=== PATIENT | male | born 1955 | race African-American/Black ===

== ENCOUNTER 2016-11-07 10:08 | Emergency (ER) | payer MEDICARE, OTHER ==
[~2016-11-07] VITALS: Ht 180.3 cm; Wt 72.6 kg
[2016-11-07 10:37] VITALS: BP 108/75
== END 2016-11-07 11:26 | disposition home or self-care (01) ==
LOC: ER 10:11
DX: S50.01XA Contusion of right elbow, initial encounter (principal); F17.210 Nicotine dependence, cigarettes, uncomplicated; M19.021 Primary osteoarthritis, right elbow; M17.0 Bilateral primary osteoarthritis of knee; M77.9 Enthesopathy, unspecified; W22.8XXA Striking against or struck by other objects, initial encounter; Y93.89 Activity, other specified; Y99.8 Other external cause status; Y92.89 Other specified places as the place of occurrence of the external cause
CPT/HCPCS: 73080

== ENCOUNTER 2017-12-16 23:58 | Emergency (ER) | payer MEDICARE, OTHER ==
[~2017-12-16] VITALS: Ht 180.3 cm; Wt 77.1 kg
[2017-12-17 00:10] VITALS: BP 140/99
[2017-12-17 01:06] LABS: Basophils # (auto) 0.1 uL; Basophils % (auto) 0.7 % (0.0-2.0); Eosinophils # (auto) 0 uL; Eosinophils % (auto) 0.2 % (0.0-7.0); Hematocrit 44.1 % (41.0-53.0); Hemoglobin 14.7 g/dL (13.5-17.5); Lymphocytes # (auto) 1.3 uL; Lymphocytes % (auto) 9.9 % (10.0-50.0); Mean Corpuscular Hemoglobin 27.4 pg (28.0-32.0); Mean Corpuscular Hgb Conc. 33.3 g/dL (32.0-36.0); Mean Corpuscular Volume 82.2 fL (80.0-100.0); Monocytes # (auto) 1.6 uL; Monocytes % (auto) 11.8 % (0.0-12.0); Neutrophils # (auto) 10.4 uL; Neutrophils % (auto) 77.4 % (37.0-80.0); Nucleated Red Blood Cells % 0.2 %; Platelet Count (auto) 303 10^3/uL (140-450); Red Blood Cells 5.37 10^6/uL (4.5-5.90); Red Cell Distribution Width 14.4 % (11.8-14.3); White Blood Cell 13.4 10^3/uL (4.4-10.8)
[2017-12-17 02:07] LABS: Albumin 4.5 g/dL (3.4-5.0); BUN/Creatinine Ratio 9.6; Bilirubin, Total 0.8 mg/dL (0.2-1.0); Calcium 9.3 mg/dL (8.5-10.1); Total Protein 8.8 g/dL (6.4-8.2); Uric Acid 6.3 mg/dL (3.5-7.2)
[2017-12-17] MEDS ORDERED: KETOROLAC TROMETH 30 MG/ML 1ML VIAL IM ONE (03:00)
[2017-12-17] MEDS ORDERED: HYDROcodone-ACET 10/325MG TAB PO ONE (03:00)
[2017-12-17] MEDS ORDERED: methylPREDNISolone SOD SUCC 125 MG/2 ML VL IM ONE (03:00)
== END 2017-12-17 03:14 | disposition home or self-care (01) ==
LOC: ER 23:58
DX: M10.9 Gout, unspecified (principal); F17.210 Nicotine dependence, cigarettes, uncomplicated
CPT/HCPCS: 36415; 73110; 73130; 80053; 84550; 85025; 96372; 99285; J1885; J2930

== ENCOUNTER 2019-08-20 13:39 | Inpatient (IN) | payer OTHER, MEDICAID ==
[~2019-08-20] VITALS: Ht 180.3 cm; Wt 63.9 kg
[2019-08-20] MEDS ORDERED: LIDOCAINE 1% HCL (LOCAL ANESTH.) INJ 20ML MDV ONE (16:55)
[2019-08-20 20:04] LABS: Basophils # (auto) 0.1 uL; Basophils % (auto) 0.9 % (0.0-2.0); Eosinophils # (auto) 0.1 uL; Eosinophils % (auto) 0.5 % (0.0-7.0); Hematocrit 30.8 % (41.0-53.0); Hemoglobin 10.4 g/dL (13.5-17.5); Lymphocytes # (auto) 2.6 uL; Mean Corpuscular Hemoglobin 28.1 pg (28.0-32.0); Mean Corpuscular Hgb Conc. 33.7 g/dL (32.0-36.0); Mean Corpuscular Volume 83.2 fL (80.0-100.0); Monocytes # (auto) 1.2 uL; Monocytes % (auto) 10.3 % (0.0-12.0); Neutrophils # (auto) 7.5 uL; Neutrophils % (auto) 65.3 % (37.0-80.0); Platelet Count (auto) 529 10^3/uL (140-450); Red Blood Cells 3.71 10^6/uL (4.5-5.90); White Blood Cell 11.4 10^3/uL (4.4-10.8)
[2019-08-20 20:25] LABS: Albumin 2.8 g/dL (3.4-5.0); Calcium 8.3 mg/dL (8.5-10.1); Potassium 3.9 mmol/L (3.5-5.1)
[2019-08-20 20:27] LABS: BUN/Creatinine Ratio 9.4; Bilirubin, Total 0.3 mg/dL (0.2-1.0); Total Protein 7.2 g/dL (6.4-8.2)
[2019-08-20 20:37] LABS: INR 1.07 (0.9-1.15); Partial Thromboplastin Time 25.2 sec (23.64-32.05)
[2019-08-20] MEDS ORDERED: ACETAMINOPHEN 325 MG TAB PO PRN (23:00)
[2019-08-20] MEDS ORDERED: MORPHINE SULFATE 4 MG/ML SYR/VIAL IV PRN (23:00)
--- NOTE | 2019-08-21 00:20 | NUR ---
MS admit from ER LONNIE DOCKERY admitted to [facility] after SBAR received. Patient oriented to Leigh Wilkins, primary RN, unit, room, bed, and unit policies regarding patient care and visiting hours. Patient weighed by bedscale and encouraged to call if they need something. All questions and concerns addressed, patient verbalized understanding. Note: pt is awake and alert, noted small incision on left posterior shoulder with stitches intact,no wound drainage noted, no signs of distress at this time, will continue to monitor.
[2019-08-21] MEDS: ONDANSETRON HCL 4 MG/2 ML VIAL IV PRN ×3 (00:52→12:22)
[2019-08-21] MEDS ORDERED: HYDR-531 PO (00:56)
[2019-08-21] MEDS ORDERED: INFLUENZA QUAD 2019-2020 0.5ml SYRG IM ONE (01:00)
[2019-08-21] MEDS ORDERED: PNEUMOCOCCAL VACC POLYS 25 MCG/0.5 ML VIAL IM ONE (01:00)
[2019-08-21 05:00] VITALS: BP 112/70
[2019-08-21 06:07] LABS: Basophils # (auto) 0.1 uL; Eosinophils % (auto) 0.5 % (0.0-7.0); Hemoglobin 9.9 g/dL (13.5-17.5); Red Cell Distribution Width 14.9 % (11.8-14.3); White Blood Cell 10.2 10^3/uL (4.4-10.8)
[2019-08-21 06:09] LABS: Basophils % (auto) 1.1 % (0.0-2.0); Eosinophils # (auto) 0.1 uL; Lymphocytes # (auto) 2.7 uL; Lymphocytes % (auto) 26.7 % (10.0-50.0); Mean Corpuscular Hemoglobin 28.7 pg (28.0-32.0); Mean Corpuscular Hgb Conc. 34.3 g/dL (32.0-36.0); Mean Corpuscular Volume 83.5 fL (80.0-100.0); Monocytes # (auto) 1.1 uL; Monocytes % (auto) 11.3 % (0.0-12.0); Neutrophils # (auto) 6.1 uL; Neutrophils % (auto) 60.4 % (37.0-80.0); Nucleated Red Blood Cells % 0.1 %; Platelet Count (auto) 548 10^3/uL (140-450); Red Blood Cells 3.47 10^6/uL (4.5-5.90)
[2019-08-21 06:29] LABS: Calcium 8.2 mg/dL (8.5-10.1); Potassium 3.8 mmol/L (3.5-5.1)
[2019-08-21 06:32] LABS: BUN/Creatinine Ratio 9.5
--- NOTE | 2019-08-21 07:15 | NUR ---
Opening Shift Note Assumed care of patient, awake and alert. No S/S of distress/SOB or pain. IV is in the left forearm 22 gauge asymptomatic, intact, patent, and saline locked. Bed is locked and in lowest position and call light is within reach. Instructed on POC and to call for assist PRN, and patient verbalized understanding. Will continue to monitor for changes Q1hr and PRN.
[2019-08-21 08:44] VITALS: BP 108/66
[2019-08-21] MEDS ORDERED: PANTOPRAZOLE 40 MG/10 ML VIAL INJ IV SCH (10:00)
[2019-08-21] MEDS: D5W/SOD CHLO 0.9% 1,000 ML IV SCH ×2 (12:20→18:46)
[2019-08-21] MEDS: cefTRIAXone 1GM/50ML D5W 50 ML IV SCH (12:22)
[2019-08-21] MEDS: HYDROcodone-ACET 5/325MG TAB PO PRN ×2 (12:30→20:32)
[2019-08-21 12:49] VITALS: BP 132/75
--- NOTE | 2019-08-21 16:00 | NUR ---
Patient advanced to clear liquid diet; will be NPO at midnight tonight.
--- NOTE | 2019-08-21 16:00 | NUR ---
Dr. Guido, [employer], at bedside; new orders received.
[2019-08-21 17:18] VITALS: BP 115/67
--- NOTE | 2019-08-21 19:40 | NUR ---
Opening Shift Note Assumed care of patient, awake and alert. No S/S of distress/SOB or pain. Instructed on POC and to call for assist PRN. Bed in lowest locked position, call light within reach, side rails up x2, fall precautions in place. Will continue to monitor for changes Q1hr and PRN.
[2019-08-21 21:28] VITALS: BP 99/67
[2019-08-21] MEDS: PANTOPRAZOLE 40 MG TAB PO SCH (21:39)
[2019-08-22] MEDS: D5W/SOD CHLO 0.9% 1,000 ML IV SCH ×2 (00:22→15:28)
[2019-08-22 04:58] VITALS: BP 120/74
--- NOTE | 2019-08-22 05:15 | NUR ---
Rounds Instructed patient to change in gown and linen change would be done for pending EGD later today. Per patient, he would like to do it later and stated "I'm sleepy and I want to sleep right now." Will continue care.
--- NOTE | 2019-08-22 07:27 | NUR ---
Opening Shift Note Assumed care of patient, awake, alert and oriented x 4. No S/S of distress/SOB. Bed is in lowest position and locked, call liao within reach. Patient updated on POC and to call for assistance as needed, patient verbalized understanding.
[2019-08-22 09:00] VITALS: BP 100/53
[2019-08-22] MEDS: cefTRIAXone 1GM/50ML D5W 50 ML IV SCH (09:58)
[2019-08-22] MEDS: PANTOPRAZOLE 40 MG TAB PO SCH ×2 (09:58→21:30)
--- NOTE | 2019-08-22 11:35 | NUR ---
PT BROUGHT DOWN TO PRE-OP FOR PROCEDURE. NO DISTRESS NOTED AT THIS TIME
[2019-08-22] MEDS ORDERED: SODIUM CHLORIDE LOCK 10 ML ONE (11:44)
[2019-08-22] MEDS ORDERED: LIDOCAINE VISCOUS 2% 15ML UD ONE (11:44)
[2019-08-22] MEDS ORDERED: fentaNYL CITRATE 100 MCG/2 ML VL ONE (11:44)
[2019-08-22] MEDS ORDERED: FLUMAZENIL 0.1 MG/ML INJ 10ML MDV IV ONE (11:44)
[2019-08-22] MEDS ORDERED: MIDAZOLAM HCL 5 MG/ML-1ML VIAL ONE (11:44)
[2019-08-22] MEDS ORDERED: diphenhdrAMINE HCL 50 MG/1 ML VL ONE (11:45)
[2019-08-22] MEDS ORDERED: NALOXONE HCL 0.4 MG/ML VIAL ONE (11:45)
--- NOTE | 2019-08-22 12:52 | NUR ---
PT BACK UP TO UNIT FROM PROCEDURE
[2019-08-22] MEDS: HYDROcodone-ACET 5/325MG TAB PO PRN ×2 (15:49→19:57)
[2019-08-22 17:00] VITALS: BP_SYST 108; BP_SYST 94; BP_DIAS 55; BP_DIAS 61
--- NOTE | 2019-08-22 17:53 | NUR ---
IV insertion IV access obtained, via clean sterile technique by inserting 22 gauge catheter at RIGHT FOREARM after 1 attempt. IV secured properly. No trauma to site. Patient tolerated well. IV removal IV DC'd with clean sterile technique, catheter fully intact. Pressure dressing applied to site. Patient tolerated well.
--- NOTE | 2019-08-22 19:30 | NUR ---
OPENING NOTE REPORT RECEIVED FROM DAY SHIFT RN PATIENT IS A/OX4 RESTING IN BED, NO S/S OF DISTRESS AT THIS TIME. PHYSICAL ASSESSMENT DONE-SEE INTERVENTIONS. POC DISCUSSED AND ALL QUESTIONS ANSWERED. FALL PRECAUTIONS IN PLACE, CALL LIGHT WITHIN REACH. WILL MONITOR Q1H PRN THROUGHOUT SHIFT.
[2019-08-22 21:54] VITALS: BP 110/77
[2019-08-23] MEDS: D5W/SOD CHLO 0.9% 1,000 ML IV SCH ×2 (00:55→10:11)
[2019-08-23] MEDS: HYDROcodone-ACET 5/325MG TAB PO PRN ×3 (04:58→16:42)
[2019-08-23 05:02] VITALS: BP 116/80
--- NOTE | 2019-08-23 07:11 | NUR ---
CLOSING PATIENT IS RESTING COMFORTABLY IN BED. NO S/S OF DISTRESS NOTED. SBAR/CARE ENDORSED TO DAYSHIFT RN
[2019-08-23 07:34] LABS: Basophils # (auto) 0.1 uL; Basophils % (auto) 0.6 % (0.0-2.0); Eosinophils # (auto) 0.1 uL; Eosinophils % (auto) 0.5 % (0.0-7.0); Hematocrit 28.5 % (41.0-53.0); Hemoglobin 9.6 g/dL (13.5-17.5); Lymphocytes # (auto) 1.8 uL; Lymphocytes % (auto) 17.9 % (10.0-50.0); Mean Corpuscular Hemoglobin 28.6 pg (28.0-32.0); Mean Corpuscular Hgb Conc. 33.9 g/dL (32.0-36.0); Mean Corpuscular Volume 84.5 fL (80.0-100.0); Monocytes % (auto) 9.5 % (0.0-12.0); Neutrophils # (auto) 7.3 uL; Neutrophils % (auto) 71.5 % (37.0-80.0); Nucleated Red Blood Cells % 0.1 %; Platelet Count (auto) 621 10^3/uL (140-450); Red Blood Cells 3.37 10^6/uL (4.5-5.90); Red Cell Distribution Width 15.5 % (11.8-14.3); White Blood Cell 10.2 10^3/uL (4.4-10.8)
[2019-08-23 09:00] VITALS: BP 137/94
[2019-08-23] MEDS: PANTOPRAZOLE 40 MG TAB PO SCH (10:11)
[2019-08-23] MEDS: cefTRIAXone 1GM/50ML D5W 50 ML IV SCH (10:11)
[2019-08-23 11:47] VITALS: BP 137/94
--- NOTE | 2019-08-23 16:42 | NUR ---
Discharge instructions given as ordered. Encourage to follow up with PMD as instructed. All questions and concerns addressed. Patient verbalized understanding. Medication reconciliation form completed and copy given to patient. needed vaccines given. IV removed with catheter intact, pressure dressing applied,. Patient taken to vehicle via wheelchair with all personal belongings, accompanied by staff and family member. No distress noted at time of departure.
== END 2019-08-23 16:37 | disposition home or self-care (01) | DRG 379 ==
LOC: ER 13:41 → WEST WING 13:42
PROVIDERS: ADMIT Hospitalist; ATTEND Family Medicine
PROC: 0HCCXZZ Extirpation of Matter from Left Upper Arm Skin, External Approach (ICD-10-PCS; 2019-08-20)
PROC: 0DB68ZX Excision of Stomach, Via Natural or Artificial Opening Endoscopic, Diagnostic (ICD-10-PCS; principal; 2019-08-22 11:52)
DX: K29.71 Gastritis, unspecified, with bleeding (principal); F17.210 Nicotine dependence, cigarettes, uncomplicated; K44.9 Diaphragmatic hernia without obstruction or gangrene; M19.012 Primary osteoarthritis, left shoulder; K29.80 Duodenitis without bleeding; Z71.6 Tobacco abuse counseling; Z79.899 Other long term (current) drug therapy
CPT/HCPCS: 36415; 43239; 71045; 73030; 73060; 80048; 80053; 80061; 85025; 85610; 85730; 86850; 86900; 86901; C9113; G0378; J0696; J2001; J2250; J2405; J7042